=== PATIENT | male | born 1995 | race Two or more races ===

== ENCOUNTER → 2025-03-31 | Outpatient (CLI) | payer BC, SELFPAY ==
[2025-03-31 12:58] LABS: Syphilis Nonreactive (Nonreactive)
[2025-03-31 13:23] LABS: Hepatitis A Antibody IgM Non Reactive (Non React); Hepatitis B Core Antibody IgM Non Reactive (Non React); Hepatitis B Surface Antigen Non Reactive (Non React); Hepatitis C Antibody Non Reactive (Non React)
[2025-03-31 14:45] LABS: HIV (1&2) Antibody Rapid Non-Reactive
[2025-03-31 15:23] LABS: Chlamydia trachomatis PCR Negative (Not Detect); Neisseria Gonorrhoeae DNA PCR Negative (Not Detect); Trichomonas Negative (Negative)
== END | disposition home or self-care (01) ==
LOC: COPL 11:00
PROVIDERS: PCP Internal Medicine; Referring Provider Internal Medicine; Visit Provider Internal Medicine
DX: Z00.00 Encounter for general adult medical examination without abnormal findings (principal)
CPT/HCPCS: 36415; 80074; 86703; 86780; 87491; 87591; 87661